=== PATIENT | female | born 1995 | race Caucasian/White ===

== ENCOUNTER 2021-02-13 07:04 | Inpatient (IN) | payer OTHER, SELFPAY ==
[~2021-02-13] VITALS: Ht 162.6 cm; Wt 45.4 kg
[2021-02-13 07:16] VITALS: BP 108/54
[2021-02-13] MEDS ORDERED: fentaNYL citrate 0.05 MG/ML VIAL IVP ONE (07:35)
[2021-02-13] MEDS ORDERED: NACL 0.9% 1,000 ML IV ONE (07:35)
--- NOTE | 2021-02-13 07:43 | NUR ---
26 Y/O F BIB SELF FROM HOME, PATIENT PRESENTS TO ED WITH PELVIC PAIN AND VAGINAL BLEEDING FOR 1 MO POST TERMINATION. PT STATES SHE WAS REFERRED FROM OBGYN TO COME TO ER FOR PAIN WELL FOR R CYST ON OVARY. ALSO C/O DIARRHEA AND NAUSEA; SKIN IS PINK/WARM/DRY; AAOX4 WITH EVEN AND STEADY GAIT; LUNGS CLEAR BL; HR EVEN AND REGULAR; PT DENIES ANY FEVER, CP, SOB, OR COUGH AT THIS TIME; PATIENT STATES PAIN OF 8/10 AT THIS TIME; VSS; PATIENT POSITIONED FOR COMFORT; HOB ELEVATED; BEDRAILS UP X2; BED DOWN. ER MD MADE AWARE OF PT STATUS. DENIES VAGINAL DISCHARGE, DYSURIA OR URINARY RETENTION. PMH: R OVARIAN CYST ALLERGY: IBUPROFEN, TRAMADOL 1G 0T 0P 1A 0L
[2021-02-13 07:59] LABS: BASOPHILS % (AUTO) 0.2 % (0.0-2.0); EOSINOPHILS # (AUTO) 0.1 K/uL (0-0.4); HEMATOCRIT 38.6 % (36-48); LYMPHOCYTES # (AUTO) 2.1 K/uL (2.5-16.5); LYMPHOCYTES % (AUTO) 24.8 % (20.5-51.1); MEAN CORPUSCULAR HEMOGLOBIN 31 pg (27-31); MEAN CORPUSCULAR HGB CONC 34 g/dL (33-37); MEAN CORPUSCULAR VOLUME 91.5 fL (80-94); MONOCYTES # (AUTO) 0.5 K/uL (0.8-1.0); MONOCYTES % (AUTO) 5.7 % (1.7-9.3); NEUTROPHILS # (AUTO) 5.8 K/uL (1.8-7.7); NEUTROPHILS % (AUTO) 68.3 % (42.2-75.2); PLATELET COUNT (AUTO) 226 K/uL (140-450); RED BLOOD CELL COUNT(AUTO) 4.22 MIL/uL (4.20-5.40); RED CELL DISTRIBUTION WIDTH 12.7 % (11.6-13.7); WHITE BLOOD COUNT (AUTO) 8.5 K/uL (4.8-10.8)
[2021-02-13] MEDS ORDERED: MORPHINE SULFATE 2 MG/ML SYR IVP ONE ×2 (08:00→11:55)
--- NOTE | 2021-02-13 08:00 | NUR ---
Ultrasound at bedside.
[2021-02-13 08:08] LABS: ANION GAP 7.2 (8-16); CARBON DIOXIDE 27.7 mmol/L (21-32); CREATININE 0.6 mg/dL (0.6-1.3); POTASSIUM 3.9 mmol/L (3.5-5.1)
[2021-02-13] MEDS ORDERED: ONDANSETRON 4 MG/2 ML VIAL IVP ONE (08:40)
[2021-02-13 08:45] LABS: APPEARANCE,URINE CLEAR (CLEAR); BILIRUBIN,URINE NEGATIVE (NEGATIVE); BLOOD, URINE NEGATIVE (NEGATIVE); COLOR,URINE YELLOW (YELLOW); LEUKOCYTE ESTERASE ,URINE NEGATIVE (NEGATIVE); NITRITE, URINE NEGATIVE (NEGATIVE); PH,URINE 7.5 (5.0-9.0); UGLUCOSE NEGATIVE (NEGATIVE)
--- NOTE | 2021-02-13 09:20 | NUR ---
ADMITTING MD AT BEDSIDE EVALUATING PT.
--- NOTE | 2021-02-13 09:23 | NUR ---
HÉCTOR WAS SWABBED AND SENT TO LAB
[2021-02-13] MEDS: DOXYCYCLINE 100 MG CAP PO SCH (17:00)
[2021-02-13] MEDS ORDERED: fentaNYL citrate 0.05 MG/ML VIAL ONE (17:09)
--- NOTE | 2021-02-13 17:09 | NUR ---
OR HERE TO SPEAK WITH PT.
--- NOTE | 2021-02-13 17:21 | NUR ---
PT TAKEN TO OR
[2021-02-13] MEDS ORDERED: DEXAMETHASONE 4 MG/ML VIAL ONE (17:50)
[2021-02-13] MEDS ORDERED: PROPOFOL 200 MG/20 ML VIAL IV ONE (17:50)
[2021-02-13] MEDS ORDERED: ONDANSETRON 4 MG/2 ML VIAL ONE ×3 (17:50→21:27)
[2021-02-13] MEDS ORDERED: ONDANSETRON 4 MG/2 ML VIAL IVP PRN ×2 (17:55→18:00)
[2021-02-13] MEDS ORDERED: ACETAMINOPHEN 325 MG TAB PO PRN (17:55)
[2021-02-13] MEDS ORDERED: oxyCODONE/APAP 5/325 MG 1 TAB TAB PO PRN (17:55)
[2021-02-13] MEDS: HYDROmorphone 1 MG/ML AMP IVP PRN ×2 (18:10→18:20)
[2021-02-13] MEDS ORDERED: HYDROmorphone PFS 2 MG/ML SYR ONE (18:14)
--- NOTE | 2021-02-13 18:50 | NUR ---
Patient admitted to room 123B from surgery. Received report from nurse Crenshaw. Pt sitting on bedpan stating that she needs to pee but can't. Instructed patient to take deep breath and wait few minutes. Call light placed within reach and instructed to call nurse for assistance as needed.
--- NOTE | 2021-02-13 19:15 | NUR ---
RECEIVED REPORT FROM DAYSWYFT NURSE.
[2021-02-13 20:00] VITALS: BP 112/69
[2021-02-13] MEDS ORDERED: ZOLPIDEM 5 MG TAB PO PRN (22:10)
--- NOTE | 2021-02-13 22:30 | NUR ---
CALLED DR. FOX FOR DIET ORDER CLARIFICATION. DR. FOX SAID CONTINUE REG DIET.
[2021-02-13] MEDS: MORPHINE SULFATE 2 MG/ML SYR IVP PRN (22:36)
--- NOTE | 2021-02-13 22:36 | NUR ---
GAVE PRN MORPHINE FOR 8/10 SHARP PAIN. PT TOLERATED WELL.
--- NOTE | 2021-02-13 22:40 | NUR ---
DR. FOX ORDERED MORPHINE FOR PRN PAIN AND AMBIEN FOR PRN SLEEP. SAID HE WILL SEE PATIENT IN THE MORNING.
--- NOTE | 2021-02-14 | NUR ---
PT ASLEEP, NO SIGNS OF DISTRESS. SAFETY MEASURES IMPLEMENTED.
[2021-02-14 04:00] VITALS: BP 108/68
[2021-02-14] MEDS ORDERED: ONDANSETRON 4 MG/2 ML VIAL IVP PRN (05:05)
[2021-02-14] MEDS: MORPHINE SULFATE 2 MG/ML SYR IVP PRN (05:59)
--- NOTE | 2021-02-14 07:08 | NUR ---
ENDORSE PT TO DAYSHIFT NURSE. PT IN STABLE CONDITION.
--- NOTE | 2021-02-14 07:15 | NUR ---
PATIENT HAS BEEN SCREENED AND CATEGORIZED MODERATE NUTRITION RISK. PATIENT WILL BE SEEN WITHIN 3-5 DAYS OF ADMISSION. 02/16/21-02/18/21 RAMY BURGESS MS, RDN
--- NOTE | 2021-02-14 07:20 | NUR ---
RECEIVED REPORT FROM VENDOR MANAGEMENT SPECIALIST NURSE FOR CONTINUITY OF PATIENT CARE. PATIENT SLEEPING. NO ACUTE DISTRESS NOTED. PATIENT HAS R AC 22 G SALINE LOCK. PATIENT ON ROOM AIR. ALL SAFETY MEASURES IN PLACE. CALL LIGHT WITHIN REACH WILL CONTINUE TO MONITOR.
--- NOTE | 2021-02-14 07:29 | NUR ---
ENDORSE PT TO DAYSHIFT NURSE FOR CONTINUITY OF CARE.
[2021-02-14] MEDS ORDERED: cefTRIAXone 250 MG in LIDOCAINE MPF 1% 0.9 ML IM SCH (08:55)
[2021-02-14] MEDS ORDERED: cefTRIAXone 250 MG VIAL ONE (09:05)
[2021-02-14] MEDS ORDERED: LIDOCAINE MPF 1% 5 ML ONE (09:05)
--- NOTE | 2021-02-14 09:05 | NUR ---
DR. FOX ORDERED 250 MG ROCEPHIN IM ONE TIME DOSE ONLY.
--- NOTE | 2021-02-14 09:15 | NUR ---
PATIENT SLEEPING NO ACUTE DISTRESS NOTED. ALL SAFETY MEASURES IN PLACE. CALL LIGHT WITHIN REACH. WILL CONTINUE TO MONITOR .
[2021-02-14] MEDS: DOXYCYCLINE 100 MG CAP PO SCH (10:27)
[2021-02-14 10:51] VITALS: BP 101/59
--- NOTE | 2021-02-14 10:55 | NUR ---
PATIENT SITTING UP IN BED. PATIENT ON PHONE. NO ACUTE DISTRESS NOTED. PATIENT ON ROOM AIR. ALL SAFETY MEASURES IN PLACE. CALL LIGHT WITHIN REACH. WILL CONTINUE TO MONITOR.
[2021-02-14 11:04] VITALS: BP 122/77
--- NOTE | 2021-02-14 12:45 | NUR ---
PATIENT AWAKE AND ALERT. NO ACUTE DISTRESS NOTED. VS STABLE. DISCHARGE INFORMATION GIVEN. PATIENT SIGNED ALL DOCUMENTS. COPIES GIVEN. PATIENT VERBALIZE UNDERSTANDING. IV AND WRISTBAND REMOVED. IV INTACT. PATIENT ABLE TO AMBULATE TO FRONT LOBBY WITHOUT DIFFICULTY. BOYFRIEND PICKED UP PATIENT.
== END 2021-02-14 14:38 | disposition home or self-care (01) | DRG 543 ==
LOC: MED 07:04 → MMU 10:30 → MTU 20:48
PROVIDERS: ADMIT Obstetrics & Gynecology; ATTEND Obstetrics & Gynecology
PROC: 10D17ZZ Extraction of Products of Conception, Retained, Via Natural or Artificial Opening (ICD-10-PCS; principal; 2021-02-13 18:00)
DX: O03.39 Incomplete spontaneous abortion with other complications (principal); N83.201 Unspecified ovarian cyst, right side; Z20.822 Contact with and (suspected) exposure to COVID-19; Z88.6 Allergy status to analgesic agent; Z88.8 Allergy status to other drugs, medicaments and biological substances
CPT/HCPCS: 36415; 76830; 76856; 80048; 81003; 84702; 85025; 86886; 86900; 86901; 88305; 96374; 96375; 96376; 99285; J0696; J1100; J1170; J2001; J2270; J2405; J2704; J3010; J7030; Q0092

== ENCOUNTER 2021-03-30 09:09 | Emergency (ER) | payer OTHER, SELFPAY ==
[~2021-03-30] VITALS: Ht 162.6 cm; Wt 47.6 kg
[2021-03-30 09:16] VITALS: BP 117/75
--- NOTE | 2021-03-30 09:50 | NUR ---
26/ BIB SELF WITH C/O SORE THROAT AND COUGH SINCE TUESDAY. PATIENT STATES SHE WOKE UP WITH A MINOR SORE THROAT ON TUESDAY, STATING "I THOUGHT IT WAS ALLERGIES." PATIENT STATES SHE BEGAN HAVING A NONPRODUCTIVE COUGH TUESDAY, WORSENING TODAY. REPORTS TAKING ROBITUSSIN AT HOME WITH NO RELIEF, DENIES CHEST PAIN, STATES "IT FEELS HARD TO TAKE A DEEP BREATH." PATIENT DENIES N/V/D, URINARY SYMPTOMS. PLACED ON BEDSIDE FOUNDRY LABORER COREROOM, 02 SATURATION 100% ON ROOM AIR.
[2021-03-30] MEDS ORDERED: ALBUTEROL SULFATE/IPRATROPIU 3 ML SOL IH ONE (10:05)
[2021-03-30] MEDS ORDERED: predniSONE 20 MG TAB PO ONE (10:05)
--- NOTE | 2021-03-30 10:14 | NUR ---
[facility] DRUG GIVEN OREDERED
--- NOTE | 2021-03-30 10:18 | NUR ---
RT AT BEDSIDE FOR BREATHING TX
[2021-03-30] MEDS ORDERED: ALBU0.0912 IH (10:23)
[2021-03-30] MEDS ORDERED: ROBAC PO (10:23)
[2021-03-30] MEDS ORDERED: PRED20TA5 PO (10:23)
[2021-03-30 10:45] VITALS: BP 133/64
--- NOTE | 2021-03-30 10:45 | NUR ---
Patient discharged with v/s stable. Written and verbal after care instructions given and explained ABOUT BRONCHOSPASM AND ACUTE BRONCHITIS. Patient alert, oriented and verbalized understanding of instructions. Ambulatory with steady gait. All questions addressed prior to discharge. ID band removed. Patient advised to follow up with PMD. Rx of PRVENTIL HFA MDI, DELTASONE AND GUAIFENESIN-CODEINE SYRUP given. Patient educated on indication of medication including possible reaction and side effects. Opportunity to ask questions provided and answered.
== END 2021-03-30 10:45 | disposition home or self-care (01) ==
LOC: MED 09:09
DX: J45.901 Unspecified asthma with (acute) exacerbation (principal); J20.9 Acute bronchitis, unspecified; Z88.5 Allergy status to narcotic agent; Z88.6 Allergy status to analgesic agent; Z98.890 Other specified postprocedural states
CPT/HCPCS: 71045; 94640; 99285; J7512

== ENCOUNTER 2021-04-24 09:20 | Emergency (ER) | payer OTHER ==
[~2021-04-24] VITALS: Ht 162.6 cm; Wt 45.4 kg
[~2021-04-24 09:20] MED LIST: ALBU0.0912 IH; PRED20TA5 PO; ROBAC PO
[2021-04-24 09:28] VITALS: BP 104/52
--- NOTE | 2021-04-24 09:34 | NUR ---
Patient ambulated with steady gait to bed 2.
[2021-04-24] MEDS ORDERED: ALBUTEROL 0.083% 2.5 MG/3 ML NEBU INH ONE (09:50)
--- NOTE | 2021-04-24 09:59 | NUR ---
[facility] DRUG GIVEN ORDERED ENCOURAGED PATIENT FOR INTERMITTEN DEEP BREATHING DURING THERAPY
--- NOTE | 2021-04-24 10:16 | NUR ---
26 Y/O F BIB SELF FROM HOME, PATIENT PRESENTS TO ED WITH N&V WITH 2 EPISODES OF EMESIS THIS MORNING AND DIARRHEA. PT STATES SHE HAS BEEN HAVING PRODUCTIVE COUGH WITH SOB AND CP FOR 1 WEEK. DENIES DYSURIA, HEMATURIA OR BLOOD IN MUCOUS, EMESIS OR STOOL; SKIN IS PINK/WARM/DRY; AAOX4 WITH EVEN AND STEADY GAIT; LUNGS CLEAR BL; HR EVEN AND REGULAR; PT DENIES ANY FEVER AT THIS TIME; PATIENT STATES PAIN OF 3/10 AT THIS TIME; VSS; PATIENT POSITIONED FOR COMFORT; HOB ELEVATED; BEDRAILS UP X2; BED DOWN. ER MD MADE AWARE OF PT STATUS. PMH: ASTHMA MED: ALBUTEROL INHALER 2 PUFFS, NO RELIEF ALLERGY: IBUPROFEN, TRAMADOL
[2021-04-24] MEDS ORDERED: AZIT250T4 PO (10:29)
--- NOTE | 2021-04-24 10:30 | NUR ---
PT UNABLE TO PROVIDE URINE AT THIS TIME.
[2021-04-24] MEDS ORDERED: ONDA-188 PO (10:35)
[2021-04-24 10:46] VITALS: BP 104/52
--- NOTE | 2021-04-24 10:46 | NUR ---
Patient discharged with v/s stable. Written and verbal after care instructions given and explained. Patient alert, oriented and verbalized understanding of instructions. Ambulatory with steady gait. All questions addressed prior to discharge. ID band removed. Patient advised to follow up with PMD. Rx of AZITHROMYCIN (SENT) AND ZOFRAN (SCRIPT) given. Patient educated on indication of medication including possible reaction and side effects. Opportunity to ask questions provided and answered.
== END 2021-04-24 10:46 | disposition home or self-care (01) ==
LOC: MED 09:20
DX: J06.9 Acute upper respiratory infection, unspecified (principal); Z20.822 Contact with and (suspected) exposure to COVID-19; J45.909 Unspecified asthma, uncomplicated; Z88.6 Allergy status to analgesic agent; Z88.8 Allergy status to other drugs, medicaments and biological substances
CPT/HCPCS: 71045; 94640; 99284; J7613; Q0092; U0003